=== PATIENT | female | born 1940 | race Caucasian/White ===

== ENCOUNTER 2020-04-09 10:27 | Outpatient (REF) | payer MEDICARE, OTHER, SELFPAY ==
[2020-04-09 14:26] LABS: Alanine Aminotransferase 34 U/L (0-31); Anion Gap 14 (12-20); Blood Urea Nitrogen 14 mg/dL (9-16); Carbon Dioxide 28 mmol/L (22-29); Chloride 101 mmol/L (96-108); Estimated Glomerular Filt Rate > 60; Potassium 4.4 mmol/l (3.3-5.1); Sodium 139 mmol/L (135-145)
== END 2020-04-09 10:28 | disposition home or self-care (01) ==
LOC: HO.10HDL 10:27
PROVIDERS: Visit Provider Family Medicine
DX: I10 Essential (primary) hypertension (principal); E78.00 Pure hypercholesterolemia, unspecified; Z79.899 Other long term (current) drug therapy
CPT/HCPCS: 36415; 80051; 82550; 82565; 84460; 84520

== ENCOUNTER 2020-10-11 09:16 | Outpatient (REF) | payer MEDICARE, OTHER, SELFPAY ==
[2020-10-11 10:46] LABS: Anion Gap 12 (12-20); Blood Urea Nitrogen 12 mg/dL (9-16); Carbon Dioxide 26 mmol/L (22-29); Chloride 105 mmol/L (96-108); Estimated Glomerular Filt Rate > 60; Potassium 4.3 mmol/L (3.3-5.1); Sodium 139 mmol/L (135-145)
== END 2020-10-11 09:17 | disposition home or self-care (01) ==
LOC: HO.LAB 09:16
PROVIDERS: PCP Family Medicine; Visit Provider Family Medicine
DX: I10 Essential (primary) hypertension (principal)
CPT/HCPCS: 36415; 80051; 82565; 84520

== ENCOUNTER 2021-06-02 13:54 | Outpatient (REF) | payer MEDICARE, OTHER, SELFPAY ==
[2021-06-02 15:19] LABS: Alanine Aminotransferase 30 U/L (0-31); Anion Gap 13 (12-20); Blood Urea Nitrogen 17 mg/dL (9-16); Carbon Dioxide 28 mmol/L (22-29); Chloride 100 mmol/L (96-108); Estimated Glomerular Filt Rate > 60; Potassium 4.2 mmol/L (3.3-5.1); Sodium 137 mmol/L (135-145)
== END 2021-06-02 13:55 | disposition home or self-care (01) ==
LOC: HO.LAB 13:54
PROVIDERS: PCP Family Medicine; Visit Provider Family Medicine
DX: I10 Essential (primary) hypertension (principal); E78.00 Pure hypercholesterolemia, unspecified; Z79.899 Other long term (current) drug therapy
CPT/HCPCS: 36415; 80051; 82550; 82565; 84460; 84520

== ENCOUNTER 2021-12-31 09:54 | Outpatient (REF) | payer MEDICARE, OTHER, SELFPAY ==
[2021-12-31 11:30] LABS: Alanine Aminotransferase 24 U/L (0-31); Anion Gap 15 (12-20); Aspartate Amino Transferase 25 U/L (5-31); Blood Urea Nitrogen 19 mg/dL (9-16); Carbon Dioxide 28 mmol/L (22-29); Chloride 102 mmol/L (96-108); Cholesterol 138 mg/dL; Estimated Glomerular Filt Rate > 60; Glucose Fasting 144 mg/dL (60-99); HDL Cholesterol 43 mg/dL; LDL Cholesterol Calculated 69 mg/dl; Potassium 4.8 mmol/L (3.3-5.1); Sodium 140 mmol/L (135-145); Triglycerides 132 mg/dL
== END 2021-12-31 09:55 | disposition home or self-care (01) ==
LOC: HO.LAB 09:54
PROVIDERS: PCP Family Medicine; Visit Provider Family Medicine
DX: I10 Essential (primary) hypertension (principal); E78.00 Pure hypercholesterolemia, unspecified; Z79.899 Other long term (current) drug therapy; Z83.3 Family history of diabetes mellitus
CPT/HCPCS: 36415; 80051; 80061; 82565; 82947; 84450; 84460; 84520

== ENCOUNTER 2022-01-26 08:38 | Outpatient (REF) | payer MEDICARE, OTHER, SELFPAY ==
[2022-01-26 10:09] LABS: Estimated Average Glucose 117 mg/dL; Hemoglobin A1c % 5.7 %
[2022-01-26 10:41] LABS: Glucose Fasting 137 mg/dL (60-99)
[2022-01-26 10:47] LABS: Creatinine Urine 165.51 mg/dL; Microalbum/Creatinine Ratio Ur 36.8 ug/mg cr
== END 2022-01-26 08:39 | disposition home or self-care (01) ==
LOC: HO.LAB 08:38
PROVIDERS: PCP Family Medicine; Visit Provider Family Medicine
DX: R73.9 Hyperglycemia, unspecified (principal)
CPT/HCPCS: 36415; 82043; 82947; 83036

== ENCOUNTER 2022-07-22 07:42 | Outpatient (REF) | payer MEDICARE, OTHER, SELFPAY ==
[2022-07-22 11:58] LABS: Estimated Average Glucose 120 mg/dL; Hemoglobin A1C 150.9911 umol/L; Hemoglobin A1c % 5.8 %
[2022-07-22 12:23] LABS: Anion Gap 13 (12-20); Blood Urea Nitrogen 20 mg/dL (9-16); Carbon Dioxide 30 mmol/L (22-29); Chloride 106 mmol/L (96-108); Estimated Glomerular Filt Rate > 60; Glucose Fasting 172 mg/dL (60-99); Potassium 5.1 mmol/L (3.3-5.1); Sodium 144 mmol/L (135-145)
== END 2022-07-22 07:43 | disposition home or self-care (01) ==
LOC: HO.WFDLDS 07:42
PROVIDERS: Visit Provider Family Medicine
DX: I10 Essential (primary) hypertension (principal); E11.9 Type 2 diabetes mellitus without complications
CPT/HCPCS: 36415; 80051; 82565; 82947; 83036; 84520

== ENCOUNTER 2023-03-11 08:05 | Outpatient (REF) | payer MEDICARE, OTHER, SELFPAY ==
[2023-03-11 11:50] LABS: Alanine Aminotransferase 15 U/L (0-31); Anion Gap 11 (12-20); Aspartate Amino Transferase 21 U/L (5-31); Blood Urea Nitrogen 15 mg/dL (9-16); Carbon Dioxide 29 mmol/L (22-29); Chloride 105 mmol/L (96-108); Estimated Glomerular Filt Rate > 60; Glucose Fasting 153 mg/dL (60-99); Potassium 4.6 mmol/L (3.3-5.1); Sodium 140 mmol/L (135-145)
[2023-03-11 12:32] LABS: Creatinine Urine 129.55 mg/dL; Microalbum/Creatinine Ratio Ur 19.2 ug/mg cr (<30)
[2023-03-11 14:11] LABS: Estimated Average Glucose 117 mg/dL; Hemoglobin A1c % 5.7 % (<6.0)
== END 2023-03-11 08:06 | disposition home or self-care (01) ==
LOC: HO.WFDLDS 08:05
PROVIDERS: Visit Provider Family Medicine
DX: Z13.89 Encounter for screening for other disorder (principal)
CPT/HCPCS: 36415; 80051; 82043; 82550; 82565; 82570; 82947; 83036; 84450; 84460; 84520

== ENCOUNTER 2023-06-02 11:00 | Outpatient (REF) | payer MEDICARE, OTHER, SELFPAY ==
--- NOTE | ~2023-06-02 | MM_ITS ---
EXAMINATION: BONE DENSITOMETRY CLINICAL INDICATION: Post menopausal. COMPARISON: This is the patient's baseline examination. TECHNIQUE: Using a [employer] DXA System (software version: 13.1) manufactured by [employer], dual-energy x-ray absorptiometry was performed of the lumbar spine and left hip. The images are of good technical quality. Summary results are attached. FINDINGS: AP SPINE L1-L4: BMD 1.141 g/cm2, Z-score 1.5, T-score -0.3, normal. LEFT FEMUR, NECK: BMD 0.831 g/cm2, Z-score 0.8, T-score -1.5, osteopenia. LEFT FEMUR, TOTAL: BMD 0.828 g/cm2, Z-score 0.7, T-score -1.4, osteopenia. IDENTIFIED RISK FACTORS: Menopause. Bilateral oophorectomy. HISTORY OF FRACTURE: None listed. MEDICATIONS: Vitamin D. MM/XR DEXA axial skeleton IMPRESSION: 1. DIAGNOSIS: Osteopenia based on the lowest T-score value of -1.5 in the femoral neck applying World Health Organization criteria. 2. 10-YEAR FRACTURE RISK PREDICTION, FRAX: Major osteoporotic fracture (clinical spine, forearm, hip or shoulder) 13.5%. Hip fracture 3.6%. 3. Treatment Recommendations: NOF guidelines recommend consideration for treatment in postmenopausal women and men age 50 and older presenting with the following: -A hip or vertebral (clinical or morphometric) fracture. -T-score less than or equal to -2.5 at the femoral neck or spine after appropriate evaluation to exclude secondary causes. -Low bone mass at the hip or spine and a 10-year fracture probability by FRAX of greater than or equal to 3% for hip fracture or greater than or equal to 20% for major osteoporotic fracture based on the [place] adapted WHO algorithm. 4. Other Recommendations: All treatment decisions require clinical judgment and consideration of individual patient factors, including patient preferences, comorbidities, previous drug use, risk factors not captured in the FRAX model (e.g. frailty, falls, vitamin D deficiency, increased bone turnover, interval significant decline in bone density) and possible under or overestimation of fracture risk by FRAX. Additional medical evaluation for secondary cause of low bone mineral density may be appropriate. FUTURE SCAN RECOMMENDATION: People with diagnosed cases of osteoporosis or at high risk for fracture should have regular bone mineral density tests. For patients eligible for Medicare, routine testing is allowed once every 2 years. The testing frequency can be increased to one year for patients who have rapidly progressing disease, those who are receiving or discontinuing medical therapy to restore bone mass, or have additional risk factors.
== END 2023-06-02 11:01 | disposition home or self-care (01) ==
LOC: HO.MAMMO 11:00
PROVIDERS: PCP Family Medicine; Visit Provider Family Medicine
DX: Z13.820 Encounter for screening for osteoporosis (principal); Z78.0 Asymptomatic menopausal state
CPT/HCPCS: 77080

== ENCOUNTER 2023-09-02 08:05 | Outpatient (REF) | payer MEDICARE, OTHER, SELFPAY ==
[2023-09-02 12:27] LABS: Alanine Aminotransferase 17 U/L (0-31); Anion Gap 11 (12-20); Aspartate Amino Transferase 22 U/L (5-31); Carbon Dioxide 27 mmol/L (22-29); Chloride 105 mmol/L (96-108); Estimated Glomerular Filt Rate > 60; Glucose Fasting 143 mg/dL (60-99); Potassium 4.1 mmol/L (3.3-5.1); Sodium 139 mmol/L (135-145)
[2023-09-02 12:30] LABS: Creatinine Urine 143.78 mg/dL; Microalbum/Creatinine Ratio Ur 13.9 ug/mg cr (<30)
[2023-09-02 12:31] LABS: Estimated Average Glucose 120 mg/dL; Hemoglobin A1c % 5.8 % (<6.0)
[2023-09-02 13:40] LABS: Blood Urea Nitrogen 17 mg/dL (9-16)
== END 2023-09-02 08:06 | disposition home or self-care (01) ==
LOC: HO.WFDLDS 08:05
PROVIDERS: Visit Provider Family Medicine
DX: I10 Essential (primary) hypertension (principal); E11.9 Type 2 diabetes mellitus without complications; E78.00 Pure hypercholesterolemia, unspecified; Z79.899 Other long term (current) drug therapy
CPT/HCPCS: 36415; 80051; 82043; 82550; 82565; 82570; 82947; 83036; 84450; 84460; 84520

== ENCOUNTER 2023-11-11 09:49 | Outpatient (REF) | payer MEDICARE, OTHER, SELFPAY ==
--- NOTE | ~2023-11-11 | XR_ITS ---
EXAMINATION: XR LUMBOSACRAL SPINE CLINICAL INFORMATION: Right-sided sciatica COMPARISON: 12/04/2013 TECHNIQUE: Three views of the lumbosacral spine. FINDINGS: Again seen are degenerative changes present throughout the lower thoracic and lumbosacral spine. Similar degenerative changes were present in 2014, but the findings have progressed slightly when compared to the study from just under 10 years ago with slight increase in osteophytes no fractures or bony destructive lesions are seen. Surgical clips are present in the gallbladder fossa. Calcified uterine fibroid is new. There are moderate to marked degenerative changes in both hips partially visualized which have also progressed since 2014. XR/XR lumbar spine 2-3V IMPRESSION: Progressive degenerative changes in the spine and hips. No acute finding. New calcification of a uterine fibroid. Electronically signed by: Dante Merlos MD 11/11/2023 11:14 AM EDT
== END 2023-11-11 09:50 | disposition home or self-care (01) ==
LOC: HO.XRAY 09:49
PROVIDERS: PCP Family Medicine; Visit Provider Family Medicine
DX: M54.31 Sciatica, right side (principal)
CPT/HCPCS: 72100

== ENCOUNTER 2024-05-15 08:42 | Outpatient (REF) | payer MEDICARE, OTHER, SELFPAY ==
[2024-05-15 12:09] LABS: Estimated Average Glucose 126 mg/dL; Total Hemoglobin (HGBA1C) 3734.9987 umol/L
[2024-05-15 12:29] LABS: Alanine Aminotransferase 22 U/L (0-31); Anion Gap 15 (12-20); Aspartate Amino Transferase 37 U/L (5-31); Blood Urea Nitrogen 15 mg/dL (9-16); Carbon Dioxide 26 mmol/L (22-29); Chloride 105 mmol/L (96-108); Cholesterol 131 mg/dL (<200); Estimated Glomerular Filt Rate > 60; Glucose Fasting 160 mg/dL (60-99); HDL Cholesterol 49 mg/dL (>40); LDL Cholesterol Calculated 56 mg/dL (<100); Potassium 4.6 mmol/L (3.3-5.1); Sodium 141 mmol/L (135-145); Triglycerides 131 mg/dL (<150)
== END 2024-05-15 08:43 | disposition home or self-care (01) ==
LOC: HO.WFDLDS 08:42
PROVIDERS: Visit Provider Family Medicine
DX: I10 Essential (primary) hypertension (principal); E11.9 Type 2 diabetes mellitus without complications; E78.00 Pure hypercholesterolemia, unspecified
CPT/HCPCS: 36415; 80051; 80061; 82550; 82565; 82947; 83036; 84450; 84460; 84520

== ENCOUNTER 2024-05-24 09:36 | Outpatient (REF) | payer MEDICARE, OTHER, SELFPAY ==
[2024-05-24 11:57] LABS: Eosinophils Absolute Auto 0.1 X10*3/uL (0.0-0.4); Imm Gran Abs Auto 0.02 X10*3/uL (0.00-0.03); Imm Gran Pct Auto 0.3 % (0.0-0.4); Lymphocytes Absolute Auto 1.5 X10*3/uL (1.2-4.9); Monocytes Absolute Auto 0.5 X10*3/uL (0.1-1.2); PLT CLUMP 1; SCAN SMEAR FLAG 1
[2024-05-24 12:19] LABS: Basophils Percent Auto 0.4 % (0-2); Hematocrit 37.6 % (37.0-47.0); Hemoglobin 13.8 g/dl (12.0-16.0); Lymphocytes Percent Auto 22.8 % (20-40); Mean Corpuscular HGB Conc 36.7 g/dl (31.0-35.0); Mean Corpuscular Hemoglobin 35.3 pg (27.0-33.0); Mean Corpuscular Volume 96.2 fL (80.0-98.0); Mean Platelet Volume 12.9 fL (9.4-12.3); Monocytes Percent Auto 7.4 % (2-11); Neutrophils Absolute Auto 4.6 x10*3/uL (2.0-8.3); Neutrophils Percent Auto 68.1 % (45-73); Platelet Count 204 X10*3/uL (160-400); Red Blood Count 3.91 X10*6/uL (4.20-5.50); Red Cell Distribution Width 12.1 % (11.0-16.0); White Blood Count 6.7 X10*3/uL (4.8-10.8)
[2024-05-24 12:20] LABS: Lipase 48 U/L (8-78)
[2024-05-24 12:23] LABS: MANUAL DIFF FLAG NO
[2024-05-24 13:17] LABS: Erythrocyte Sedimentation Rate 14 MM/HR (0-20)
== END 2024-05-24 09:37 | disposition home or self-care (01) ==
LOC: HO.WFDLDS 09:36
PROVIDERS: Visit Provider Family Medicine
DX: R11.0 Nausea (principal)
CPT/HCPCS: 36415; 83690; 85025; 85652

== ENCOUNTER 2024-06-02 11:29 | Outpatient (REF) | payer MEDICARE, OTHER, SELFPAY ==
[2024-06-02 14:19] LABS: Appearance Urine Clear; Color Urine Yellow; Glucose Urine UA 250 mg/dL (Negative); Leukocyte Esterase Urine Moderate (2+) (Negative); Nitrite Urine Negative (Negative); UMIC TRIGGER UACC YES; Urine Blood Negative (Negative); Urine Ketones Negative (Negative); Urine Protein Negative (Neg-Trace)
[2024-06-02 14:23] LABS: Bacteria Urine None Seen (None Seen); Hyaline Casts Urine 0-2 /LPF (0-2); RBC Urine 0-2 /HPF (0-2); UACC Culture Trigger YES; WBC Urine 21-50 /HPF (0-5)
== END 2024-06-02 11:30 | disposition home or self-care (01) ==
LOC: HO.WFDLDS 11:29
PROVIDERS: Visit Provider Family Medicine
DX: R30.0 Dysuria (principal)
CPT/HCPCS: 81001; 87086

== ENCOUNTER 2024-06-05 07:22 | Emergency (ER) | payer MEDICARE, OTHER, SELFPAY ==
--- NOTE | ~2024-06-05 | CT_ITS ---
CLINICAL HISTORY: RLQ pain, constipation, r o obstruction CT abdomen and pelvis with contrast Comparison: None Findings: No acute finding in the partially visualized lung bases. Cholecystectomy. No abnormal biliary ductal dilatation. Normal liver, spleen, pancreas, and right adrenal gland. Small left adrenal gland nodule measuring 1.6 cm is indeterminate. No free fluid or free air within the abdomen or pelvis. No findings of bowel obstruction or other acute enteric process. Normal appendix. Normal kidneys, ureters, and urinary bladder. Multiple calcified uterine fibroids. Otherwise normal uterus and ovaries. No acute fracture. No suspicious lytic or blastic bone lesion. IMPRESSION: No acute findings. This document has been electronically signed by: Momo Murray MD on 06/05/2024 19:25:38
[2024-06-05 07:39] VITALS: BP 157/77; PULSE 73; RESP 16; TEMP 37; O2SAT 97; BMI 24.1
[2024-06-05 08:08] LABS: MANUAL DIFF FLAG NO
[2024-06-05 08:12] LABS: Basophils Percent Auto 0.4 % (0-2); Eosinophils Absolute Auto 0.2 X10*3/uL (0.0-0.4); Eosinophils Percent Auto 2.2 % (0-4); Hematocrit 37.5 % (37.0-47.0); Hemoglobin 13.9 g/dl (12.0-16.0); Imm Gran Abs Auto 0.03 X10*3/uL (0.00-0.03); Imm Gran Pct Auto 0.4 % (0.0-0.4); Lymphocytes Absolute Auto 1.9 X10*3/uL (1.2-4.9); Lymphocytes Percent Auto 27.5 % (20-40); Mean Corpuscular HGB Conc 37.1 g/dl (31.0-35.0); Mean Corpuscular Volume 94.5 fL (80.0-98.0); Mean Platelet Volume 11.7 fL (9.4-12.3); Monocytes Absolute Auto 0.5 X10*3/uL (0.1-1.2); Monocytes Percent Auto 6.7 % (2-11); Neutrophils Absolute Auto 4.3 x10*3/uL (2.0-8.3); Neutrophils Percent Auto 62.8 % (45-73); Platelet Count 199 X10*3/uL (160-400); Red Blood Count 3.97 X10*6/uL (4.20-5.50); Red Cell Distribution Width 11.9 % (11.0-16.0); White Blood Count 6.9 X10*3/uL (4.8-10.8)
[2024-06-05 08:24] LABS: Anion Gap 12 (12-20)
[2024-06-05 08:26] LABS: Appearance Urine Clear; Color Urine Yellow; Glucose Urine UA Negative (Negative); Leukocyte Esterase Urine Moderate (2+) (Negative); Nitrite Urine Negative (Negative); PH 7.5 (5.0-9.0); Specific Gravity - Urine 1.015 (1.005-1.025); UMIC TRIGGER UACC YES; Urine Blood Negative (Negative); Urine Ketones Negative (Negative); Urine Protein Negative (Neg-Trace)
[2024-06-05 08:31] LABS: Bacteria Urine None Seen (None Seen); Hyaline Casts Urine 0-2 /LPF (0-2); RBC Urine 0-2 /HPF (0-2); UACC Culture Trigger YES
[2024-06-05 08:33] LABS: Alanine Aminotransferase 23 U/L (0-31); Albumin Level 4.5 g/dL (3.5-5.0); Alkaline Phosphatase 51 U/L (39-117); Aspartate Amino Transferase 28 U/L (5-31); Bilirubin Direct 0.3 mg/dL (0.0-0.5); Bilirubin Total 1.4 mg/dL (0.0-1.0); Blood Urea Nitrogen 13 mg/dL (9-16); Calcium 10.1 mg/dL (8.4-10.2); Carbon Dioxide 27 mmol/L (22-29); Chloride 102 mmol/L (96-108); Creatinine Clr Calc Pharmacy 51.8; Estimated Glomerular Filt Rate > 60; Glucose Random 158 mg/dL (60-115); Potassium 4.2 mmol/L (3.3-5.1); Sodium 137 mmol/L (135-145); Total Protein 7.4 g/dL (6.5-8.0)
--- NOTE | 2024-06-05 15:32 | ED_ITS ---
HPI - Abdominal Pain General Chief Complaint: Abdominal Pain Stated Complaint: abd pain Time Seen by Provider: 06/05/24 15:30 Source: patient and family (daughter) Mode of arrival: ambulatory Limitations: no limitations History of Present Illness ED Provider: OFELIA HILLS PA-C HPI narrative: 83 year old female with pmhx significant for GERD, hypokalemia, HTN, HLD, and depression presents to the ED today for evaluation of right lower and right upper abdominal pain x 22 days. No radiation of pain. Pain is constant however waxes and wanes in severity. At present, pain is a 2/10. She reports taking tylenol at 0300 this morning with some relief. She reports recent constipation. She used to have bowel movements regularly, now having to take Miralax to pass BMs. Her last BM was 3 days ago. She is passing flatus. She admits to associated nausea without vomiting. She denies any dysuria, hematuria or flank pain however endorses urge to urinate. She reports following up with her PCP 1 week ago where she had normal blood work and urinalysis. She was provided with a referral to a GI specialist (dr. padilla) however has not yet had follow up. Pertinent surgical history includes cholecystectomy >30 yrs ago, tubal ligation, and oophorectomy. Related Data Allergies Allergy/AdvReac Type Severity Reaction Status Date / Time No Known Allergies Allergy Unverified 06/05/24 07:40 [No Known Allergies*] Review of Systems Review of Systems Yes all other systems are reviewed and are negative PMFSH Past Medical History Attestation statement: The following information was validated with the patient. Source: old records reviewed and nursing notes reviewed Social History Social History Advance Directives: No Advance Directives Information Provided: Yes Do you have a plan to hurt others: No Plan Physical Exam ED Vital Signs: Vital Signs - 24 hr 06/05/24 15:36 06/05/24 18:42 06/05/24 19:57 Temperature 98.6 F Pulse Rate 78 72 72 Respiratory Rate 16 16 16 Blood Pressure 157/77 H 107/68 107/68 Pulse Oximetry 97 98 98 Oxygen Delivery Method Room Air Room Air Room Air BMI result Body Mass Index 24.1 hyperetnsive, vitals otherwise wnl General: well appearing, in no acute distress. Skin: Warm, dry, intact. No rashes or lesions. Head: Normocephalic, atraumatic. EENT: Hearing is intact b/l. Conjunctiva clear. PERRLA. EOM intact. Moist mucous membranes.? Neck: Supple without LAD Cardiac: Chest wall symmetric. RRR Lungs: Normal respiratory effort without accessory muscle use Abdomen: +soft, nondistended, ttp of RLQ without rebound or guarding. normoactive bs throughout. Negative Rovsing sign. Negative Thomas's sign. no cvat. Ext: Upper and lower extremities atraumatic, without tenderness, deformity, swelling or erythema Neuro: AOx3. Normal speech. Ambulating with steady gait. Course Course Course Narrative: 1740 -- CBC without leukocytosis or left shift. No anemia. H&H stable. Chemistry without acute electrolyte abnormality requiring intervention. No VIKTORIYA. Random glucose 158. Total bili is elevated to 1.4. she is s/p cholecystectomy. liver enzymes are otherwise WNL with normal direct bili. urine shows moderate leukocyte esterase, 6-10 urine WBCs. 6-10 squamous epithelial cells and no urine bacteria. likely contamination. will wait for urine culture for treatment. > CT a/p pending > tylenol for headache, zofran for nausea 1851 -- Patient stable at the end of my shift. Sign out given to Tatiana ALEJANDRE pending scans and disposition. likely anticipate discharge home. Reevaluation(s) Reevaluation #1: I Vernell Dowling PA-C have accepted care of the patient and signed out pending imaging of the CT abdomen And pelvis: I have independently reviewed the following tests: CT abdomen and pelvis:Findings: No acute finding in the partially visualized lung bases. Cholecystectomy. No abnormal biliary ductal dilatation. Normal liver, spleen, pancreas, and right adrenal gland. Small left adrenal gland nodule measuring 1.6 cm is indeterminate. No free fluid or free air within the abdomen or pelvis. No findings of bowel obstruction or other acute enteric process. Normal appendix. Normal kidneys, ureters, and urinary bladder. Multiple calcified uterine fibroids. Otherwise normal uterus and ovaries. No acute fracture. No suspicious lytic or blastic bone lesion. IMPRESSION: No acute findings. Medical Decision Making Medical Decision Making MDM Narrative: 83 year old female with pmhx significant for GERD, hypokalemia, HTN, HLD, and depression presents to the ED today for evaluation of right lower and right upper abdominal pain x22 days. hypertensive, vitals are otherwise wnl. she is nontoxic appearing and in NAD. on exam, abdomen is soft, nondistended, ttp of RLQ without rebound or guarding. normoactive bs throughout. Negative Rovsing sign. Negative Thomas's sign. no cvat. Differential diagnoses: appendicitis, diverticulitis, diverticulosis, UTI, constipation, bowel obstruction. Abdominal exam without peritoneal signs. Low suspicion for acute hepatobiliary disease (including acute cholecystitis), acute infectious processes (pneumonia, hepatitis, pyelonephritis, PID, TOA), vascular catastrophe, bowel obstruction or viscus perforation, ovarian cyst/ rupture/ torsion, ectopic. Labs, UA obtained from triage. Plan for imaging, pain control, zofran and re- evaluation. Differential Diagnosis Differential Diagnoses: The differential diagnosis associated with the presentation includes as above Admission/Observation not indicated Lab Data MDM Lab Attestation statement: I reviewed the patient's lab results. as above. 06/05/24 08:05 06/05/24 08:05 Labs: Lab Results 06/05/24 06/05/24 Range/Units 08:05 08:14 WBC 6.9 (4.8-10.8) X10*3/uL RBC 3.97 L (4.20-5.50) X10*6/uL Hgb 13.9 (12.0-16.0) g/dl Hct 37.5 (37.0-47.0) % MCV 94.5 (80.0-98.0) fL MCH 35.0 H (27.0-33.0) pg MCHC 37.1 H (31.0-35.0) g/dl RDW 11.9 (11.0-16.0) % Plt Count 199 (160-400) X10*3/uL MPV 11.7 (9.4-12.3) fL Immature Gran % (Auto) 0.4 (0.0-0.4) % Neut % (Auto) 62.8 (45-73) % Lymph % (Auto) 27.5 (20-40) % Cache % (Auto) 6.7 (2-11) % Eos % (Auto) 2.2 (0-4) % Baso % (Auto) 0.4 (0-2) % Lymph # (Auto) 1.9 (1.2-4.9) X10*3/uL Cache # (Auto) 0.5 (0.1-1.2) X10*3/uL Eos # (Auto) 0.2 (0.0-0.4) X10*3/uL Baso # (Auto) 0.0 (0.0-0.2) X10*3/uL Abs Immat Gran (auto) 0.03 (0.00-0.03) X10*3/uL Absolute Neuts (auto) 4.3 (2.0-8.3) x10*3/uL Absolute Nucleated RBC 0.000 (0.0-0.012) X10*3/uL Nucleated RBC % (auto) 0.0 (0.0-0.2) /100WBC Sodium 137 (135-145) mmol/L Potassium 4.2 (3.3-5.1) mmol/L Chloride 102 (96-108) mmol/L Carbon Dioxide 27 (22-29) mmol/L Anion Gap 12 (12-20) BUN 13 (9-16) mg/dL Creatinine 0.71 (0.5-1.4) mg/dL Estim Creat Clear Calc 51.8 Estimated GFR > 60 Random Glucose 158 H (60-115) mg/dL Calcium 10.1 (8.4-10.2) mg/dL Total Bilirubin 1.4 H (0.0-1.0) mg/dL Direct Bilirubin 0.3 (0.0-0.5) mg/dL AST 28 (5-31) U/L ALT 23 (0-31) U/L Alkaline Phosphatase 51 (39-117) U/L Total Protein 7.4 (6.5-8.0) g/dL Albumin 4.5 (3.5-5.0) g/dL Urine Color Yellow Urine Appearance Clear Urine pH 7.5 (5.0-9.0) Ur Specific [place] 1.015 (1.005-1.025) Urine Protein Negative (Neg-Trace) mg/dL Urine Glucose (UA) Negative (Negative) mg/dL Urine Ketones Negative (Negative) mg/dL Urine Blood Negative (Negative) Urine Nitrite Negative (Negative) Ur Leukocyte Esterase Moderate (2+) H (Negative) Urine RBC 0-2 (0-2) /HPF Urine WBC 6-10 H (0-5) /HPF Ur Squamous Epith Cells 6-10 (0-2) /HPF Urine Bacteria None Seen (None Seen) Hyaline Casts 0-2 (0-2) /LPF Independent Interpretation I performed an independent interpretation of an: CT Scan Radiology Impression Discussion of test interpretation with radiology: I have reviewed the radiologist's reading. Independent Historian Clinical information obtained from an independent historian. History obtained from or confirmed by: Other (daughter) Social Determinants Patient?s care significantly limited by Social Determinants of Health including: Other Social Determinant of Health Medications Administered Discontinued Medications Generic Name Dose Route Start Last Admin Trade Name Freq PRN Reason Stop Dose Admin Diatrizoate Meglum/Diatrizoate Sod 30 ml 06/05/24 18:59 06/05/24 19:00 Diatrizoate Meglumine, Sodium 30 Ml Solution PO 06/05/24 19:00 30 ml ONCE ONE Administration Acetaminophen 1,000 mg in 100 mls @ 400 mls/hr 06/05/24 15:50 06/05/24 17:04 Ofirmev IV 06/05/24 16:04 Infused ONCE ONE Infusion Iohexol 85 ml 06/05/24 18:59 06/05/24 18:59 Iohexol 350 Mg/Ml 75 Ml Infus..Btl IV 06/05/24 19:00 85 ml ONCE ONE Administration Ondansetron HCl 4 mg 06/05/24 15:50 06/05/24 16:49 Ondansetron Hcl 4 Mg/2 Ml Vial IVPUSH 06/05/24 15:51 4 mg ONCE ONE Administration Critical Care Time Critical Care Time Critical Care Time: No Discharge Plan Discharge Clinical Impression: Abdominal pain, Constipation Patient Disposition: Home, Self-Care Instructions: Constipation (ED) Additional Instructions: The CT scan revealed a your constipated. You also had no lab abnormalities. See home care instructions. I would use [id number] Colace, this is a stool softener, twice a day. I would also use [id number] MiraLax several times a day, or up to every hour, until you begin having multiple large volume bowel movements. Once you have alleviated your current stool burden, you will have to determine how frequently you require the Colace and the MiraLax. Follow up with primary care as needed. Interventions: ED Discharge Assessment Last Done: 06/05/24 19:57 Discharge Date/Time: 06/05/24 19:58 Print Language: Citizen [place]
[2024-06-05 15:36] VITALS: BP 157/77; PULSE 78; RESP 16; O2SAT 97
[2024-06-05] MEDS: ondansetron HCL 4 MG/2 ML VIAL IVPUSH (16:49)
[2024-06-05] MEDS: Acetaminophen 1,000 MG/100 ML PIGGYBACK 400 MG IV (16:49)
[2024-06-05 18:42] VITALS: BP 107/68; PULSE 72; RESP 16; O2SAT 98
[2024-06-05] MEDS: iohexoL 350 MG/ML 75 ML INFUS..BTL 85 ML IV (18:59)
[2024-06-05] MEDS: Diatrizoate Meglumine, Sodium 30 ML SOLUTION PO (19:00)
[2024-06-05 19:57] VITALS: BP 107/68; PULSE 72; RESP 16; TEMP 37; O2SAT 98
== END 2024-06-05 19:58 | disposition home or self-care (01) ==
PROVIDERS: Emergency Medicine Emergency Medical Services; Emergency Provider Emergency Medicine Emergency Medical Services; PCP Family Medicine
DX: K59.00 Constipation, unspecified (principal); R10.2 Pelvic and perineal pain; R10.31 Right lower quadrant pain; R10.11 Right upper quadrant pain; R11.0 Nausea; Z79.899 Other long term (current) drug therapy
CPT/HCPCS: 36415; 74177; 80053; 81001; 82248; 85025; 87086; 87088; 96374; 96375; 99284; J0131; J2405; Q9967

== ENCOUNTER → 2024-06-05 16:01 | Outpatient (BNV) | payer MEDICARE, OTHER, SELFPAY | PROVIDERS: Emergency Provider Emergency Medicine Emergency Medical Services; PCP Family Medicine; Visit Provider Radiology Diagnostic Radiology | DX: R10.31 Right lower quadrant pain (principal) | CPT/HCPCS: 74177 ==